=== PATIENT | male | born 1995 | race Caucasian/White ===

== ENCOUNTER 2021-03-20 13:56 | Emergency (ER) | payer BC ==
[2021-03-20 14:20] VITALS: BP 135/77; PULSE 88; RESP 20; TEMP 98
--- NOTE | 2021-03-20 14:47 | ED ---
General Adult HPI - General Chief complaint: Head Injury Stated complaint: head injury Source: patient, RN notes reviewed Mode of arrival: ambulatory Limitations: no limitations - History of Present Illness Initial comments: Patient is a 26-year-old male presents to the emergency department complaining of head injury. He notes that yesterday reported to his house to see what his kid was crying about he tripped fell and hit his head. He denied any loss of consciousness. He denied eating any blood thinners. Patient is alert and oriented 4. He denied any other issues or complaints. He did note that he did have some mental fogginess upon waking up today but otherwise feels fine. He wanted to come in just to make sure there was okay. He denied any chest pain shortness of breath headache nausea vomiting diarrhea constipation fever fatigue chills dizziness lightheadedness. - Related Data Allergies Allergy/AdvReac Type Severity Reaction Status Date / Time No Known Allergies Allergy Verified 03/20/21 14:17 Review of Systems ROS Statement: Those systems with pertinent positive or pertinent negative responses have been documented in the HPI. ROS Other: All systems not noted in ROS Statement are negative. Past Medical History Past Medical History: Hypertension History of Any Multi-Drug Resistant Organisms: None Reported Past Surgical History: No Surgical Hx Reported Past Psychological History: No Psychological Hx Reported Smoking Status: Never smoker Past Alcohol Use History: None Reported Past Drug Use History: None Reported General Exam Limitations: no limitations General appearance: alert, in no apparent distress Head exam: Present: atraumatic, normocephalic, normal inspection Eye exam: Present: normal appearance, PERRL, EOMI. Absent: scleral icterus, conjunctival injection, periorbital swelling Neck exam: Present: normal inspection Respiratory exam: Present: normal lung sounds bilaterally. Absent: respiratory distress, wheezes, rales, rhonchi, stridor Cardiovascular Exam: Present: regular rate, normal rhythm, normal heart sounds. Absent: systolic murmur, diastolic murmur, rubs, gallop, clicks Extremities exam: Present: normal inspection, full ROM, normal capillary refill. Absent: tenderness, pedal edema, joint swelling, calf tenderness Neurological exam: Present: alert, oriented X3 Psychiatric exam: Present: normal affect, normal mood Skin exam: Present: warm, dry, intact, normal color. Absent: rash Course Vital Signs 03/20/21 14:17 Temperature 98.0 F Pulse Rate 88 Respiratory 20 Rate Blood Pressure 135/77 O2 Sat by Pulse 100 Oximetry Medical Decision Making - Medical Decision Making 26-year-old male that fell on his head yesterday. Given patient's history and physical patient most likely has a concussion. No imaging or labs needed at this time. As patient is not taking blood thinners does not have any open wounds or lacerations. Case discussed with Dr. Copeland, patient discharge home with follow-up to primary care. Disposition Clinical Impression: Concussion Disposition: HOME SELF-CARE Condition: Stable Instructions (If sedation given, give patient instructions): Concussion (ED) Additional Instructions: Please return to the Emergency Department if symptoms worsen or any other concerns. Follow-up with primary care in the next several days. Take Tylenol as needed for pain. Avoid any strenuous activity or exercise. Is patient prescribed a controlled substance at d/c from ED?: No Referrals: Kirt Vines DO [Primary Care Provider] - 1-2 days Time of Disposition: 14:46
== END 2021-03-20 14:57 | disposition home or self-care (01) ==
LOC: EC 13:56
DX: S06.0X0A Concussion without loss of consciousness, initial encounter (principal); I10 Essential (primary) hypertension; W01.198A Fall on same level from slipping, tripping and stumbling with subsequent striking against other object, initial encounter; Y92.009 Unspecified place in unspecified non-institutional (private) residence as the place of occurrence of the external cause
CPT/HCPCS: 99283

== ENCOUNTER 2021-08-08 20:20 | Emergency (ER) | payer BC ==
[2021-08-08 20:38] VITALS: BP 138/85; TEMP 98.9
[2021-08-08] MEDS ORDERED: ONDANSETRON ODT 4 MG TAB PO STA (21:14)
[2021-08-08] MEDS ORDERED: ACETAMINOPHEN TAB 500 MG TAB PO STA (21:14)
--- NOTE | 2021-08-08 22:01 | CT ---
EXAMINATION TYPE: CT brain claudio melara DATE OF EXAM: 08/08/2021 COMPARISON: None available HISTORY: pain from fall CT DLP: 1566.9 mGycm Automated exposure control for dose reduction was used. TECHNIQUE: CT scan of the head and cervical spine are performed without contrast. FINDINGS: There is no acute intracranial hemorrhage, mass effect, or midline shift identified. The ventricles and sulci are within normal limits in size. The globes are intact and the visualized sin uses are clear. Cavum septum pellucidum seen. Cervical spine is visualized in its entirety from C1 through upper thoracic levels and demonstrates s atisfactory alignment without evidence of acute fracture or dislocation. Prevertebral soft tissue ap pears within normal limits. The C1-C2 articulation is unremarkable. IMPRESSION: 1. There is no acute fracture or dislocation evident in the cervical spine. 2. No acute intracranial hemorrhage, mass effect, or midline shift is seen.
[2021-08-08] MEDS ORDERED: ONDANSETRON 4 MG ODT STARTER PACK 2 TAB BTL PO STA (22:16)
--- NOTE | 2021-08-08 22:17 | ED ---
Fall HPI - General Chief Complaint: Fall Stated Complaint: Fall, Hit head Source: patient Mode of arrival: ambulatory - History of Present Illness Initial Comments: Patient is a 26-year-old male presents emergency department after he sustained a head injury. States that he tripped over a baby bottle, fell forward and hit his head on the carpet. He denies losing consciousness. Does admit to a headache. Did not take any medications for his pain. No visual changes. No speech difficulties. No numbness, tingling or weaknesses extremities. He denies any neck or back pain. No pain in his extremities. No chest pain or shortness of breath. Does admit to some nausea. His work was requesting that he be evaluated before he comes in to work. - Related Data Home Medications Medication Instructions Recorded Confirmed No Known Home Medications 08/08/21 08/08/21 Allergies Allergy/AdvReac Type Severity Reaction Status Date / Time iodine Allergy Rash/Hives Verified 08/08/21 21:54 Review of Systems ROS Statement: Those systems with pertinent positive or pertinent negative responses have been documented in the HPI. ROS Other: All systems not noted in ROS Statement are negative. Past Medical History Past Medical History: Hypertension History of Any Multi-Drug Resistant Organisms: None Reported Past Surgical History: No Surgical Hx Reported Past Psychological History: Anxiety Smoking Status: Never smoker Past Alcohol Use History: Occasional Past Drug Use History: None Reported General Exam Limitations: no limitations Course Vital Signs 08/08/21 08/08/21 20:36 22:23 Temperature 98.9 F Pulse Rate 91 78 Respiratory 20 16 Rate Blood Pressure 138/85 O2 Sat by Pulse 100 98 Oximetry Medical Decision Making - Medical Decision Making Upon arrival, the patient is placed in room 31. Thorough history and physical exam was performed. Patient sent for CT of his head which demonstrates no acute intracranial process. Given 4 mg of Zofran for nausea and Tylenol. Patient reevaluated and reports improvement in his symptoms. Patient will be discharged home at this time. Given a work note stating that he is appropriate to work. Instructed to follow-up with primary care doctor in 2-4 days. Return for any new or worsening symptoms. Patient discharged home in stable condition Disposition Clinical Impression: Fall, Head injury Disposition: HOME SELF-CARE Condition: Stable Instructions (If sedation given, give patient instructions): Head Injury (ED) Additional Instructions: Please follow up with your PCP in 2-4 days. Return to the emergency room for any new or worsening symptoms Is patient prescribed a controlled substance at d/c from ED?: No Referrals: Kirt Vines DO [Primary Care Provider] - 1-2 days Time of Disposition: 22:17
[2021-08-08 22:24] VITALS: PULSE 78; RESP 16
== END 2021-08-08 22:24 | disposition home or self-care (01) ==
LOC: EC 20:20
DX: S09.90XA Unspecified injury of head, initial encounter (principal); I10 Essential (primary) hypertension; Z88.8 Allergy status to other drugs, medicaments and biological substances; W18.09XA Striking against other object with subsequent fall, initial encounter; Y92.009 Unspecified place in unspecified non-institutional (private) residence as the place of occurrence of the external cause
CPT/HCPCS: 72125; 70450; 99284; S0119

== ENCOUNTER 2022-07-17 04:55 | Emergency (ER) | payer BC ==
[2022-07-17 05:08] VITALS: BP 143/100; RESP 16; TEMP 98.1
[2022-07-17] MEDS ORDERED: AZITHROMYCIN 500 MG TAB PO STA (05:17)
[2022-07-17] MEDS ORDERED: IPRATROPIUM-ALBUTEROL 3 ML NEB INHALATION STA (05:17)
--- NOTE | 2022-07-17 05:18 | ED ---
URI HPI - General Chief Complaint: Upper Respiratory Infection Stated Complaint: Congestion, Shortness of breath Time Seen by Provider: 07/17/22 05:17 Source: patient, RN notes reviewed, old records reviewed Mode of arrival: ambulatory Limitations: no limitations - History of Present Illness Initial Comments: This is a 27-year-old male DF for evaluation. Patient has a for cough congestion persisting cough or no vomiting. No fevers but occasionally does have chills and some sweating. Ration does have high blood pressure but no other medical history MD Complaint: fever, cough, sore throat, nasal congestion -: days(s) Severity: moderate Severity scale (1-10): 4 Quality: sharp Consistency: constant, intermittent Worsens With: nothing Context: sick contacts Associated Symptoms: fever, chills, myalgias, diaphoresis, cough, shortness of breath, abdominal pain, nausea, vomiting Treatments Prior to Arrival: none - Related Data Previous Rx's Medication Instructions Recorded Azithromycin [Zithromax] 500 mg PO DAILY #5 tab 07/17/22 Allergies Allergy/AdvReac Type Severity Reaction Status Date / Time iodine Allergy Rash/Hives Verified 08/08/21 21:54 Review of Systems ROS Statement: Those systems with pertinent positive or pertinent negative responses have been documented in the HPI. ROS Other: All systems not noted in ROS Statement are negative. Past Medical History Past Medical History: Hypertension History of Any Multi-Drug Resistant Organisms: None Reported Past Surgical History: No Surgical Hx Reported Past Psychological History: Anxiety Smoking Status: Never smoker Past Alcohol Use History: Occasional Past Drug Use History: None Reported General Exam Limitations: no limitations General appearance: alert, in no apparent distress Head exam: Present: atraumatic, normocephalic, normal inspection Eye exam: Present: normal appearance, PERRL, EOMI. Absent: scleral icterus, conjunctival injection, periorbital swelling ENT exam: Present: normal exam, mucous membranes moist Neck exam: Present: normal inspection. Absent: tenderness, meningismus, lymphadenopathy Respiratory exam: Present: normal lung sounds bilaterally. Absent: respiratory distress, wheezes, rales, rhonchi, stridor Cardiovascular Exam: Present: regular rate, normal rhythm, normal heart sounds. Absent: systolic murmur, diastolic murmur, rubs, gallop, clicks GI/Abdominal exam: Present: soft, normal bowel sounds. Absent: distended, tenderness, guarding, rebound, rigid Extremities exam: Present: normal inspection, full ROM, normal capillary refill. Absent: tenderness, pedal edema, joint swelling, calf tenderness Back exam: Present: normal inspection Neurological exam: Present: alert, oriented X3, CN II-XII intact Psychiatric exam: Present: normal affect, normal mood Skin exam: Present: warm, dry, intact, normal color. Absent: rash Course Vital Signs 07/17/22 07/17/22 07/17/22 05:06 05:27 05:35 Temperature 98.1 F Pulse Rate 79 79 85 Respiratory 16 Rate Blood Pressure 143/100 O2 Sat by Pulse 98 Oximetry - Reevaluation(s) Reevaluation #1: 07/17/22 medical record is reviewed patient symptoms improved here in the ED patient informed of results and questions answered Medical Decision Making - Medical Decision Making 27 male DF for evaluation. Patient is coming in for fever sore throat cough and congestion he has have pneumonia on x-ray we'll place on antibiotics and can be discharged home - Radiology Data Radiology results: report reviewed (Chest x-rays positive for pneumonia), image reviewed Disposition Clinical Impression: Community acquired bacterial pneumonia Disposition: HOME SELF-CARE Condition: Fair Instructions (If sedation given, give patient instructions): Community Acquired Pneumonia (ED) Prescriptions: Azithromycin [Zithromax] 500 mg PO DAILY #5 tab Is patient prescribed a controlled substance at d/c from ED?: No Referrals: None,Stated [Primary Care Provider] - 1-2 days Time of Disposition: 06:20
[2022-07-17 05:35] VITALS: PULSE 85
--- NOTE | 2022-07-17 06:12 | XR ---
EXAM: XR Chest, 1 View CLINICAL HISTORY: ITS.REASON XR Reason: cough TECHNIQUE: Frontal view of the chest. COMPARISON: No relevant prior studies available. FINDINGS: Lungs: Right infrahilar/basilar atelectasis and/or infiltrates. Pleural space: Unremarkable. No pneumothorax. Heart: Unremarkable. No cardiomegaly. Mediastinum: Unremarkable. Bones/joints: Unremarkable. IMPRESSION: Right infrahilar/basilar atelectasis and/or infiltrates. PA and lateral views of the chest recommended for further evaluation.
== END 2022-07-17 06:31 | disposition home or self-care (01) ==
LOC: EC 04:55
DX: J15.8 Pneumonia due to other specified bacteria (principal); I10 Essential (primary) hypertension; F41.9 Anxiety disorder, unspecified; Z91.041 Radiographic dye allergy status
CPT/HCPCS: 71045; 94640; 99284

== ENCOUNTER 2022-12-02 20:27 | Emergency (ER) | payer BC ==
[2022-12-02 20:37] VITALS: BP 131/86; PULSE 112; RESP 20; TEMP 99.2
--- NOTE | 2022-12-02 22:12 | ED ---
General Adult HPI - General Chief complaint: Headache Stated complaint: migraine,vomiting Time Seen by Provider: 12/02/22 22:12 Source: patient Mode of arrival: ambulatory - History of Present Illness Initial comments: 27-year-old male with no significant past medical history presents the emergency department with generalized body aches, headache, cough that started t nan. Patient denies any chest pain, palpitations, shortness of breath Vital signs stable upon initial evaluation. Patient eloped prior to completion of care and room assignment AGAINST MEDICAL ADVICE. - Related Data Previous Rx's Medication Instructions Recorded Azithromycin [Zithromax] 500 mg PO DAILY #5 tab 07/17/22 Allergies Allergy/AdvReac Type Severity Reaction Status Date / Time iodine Allergy Rash/Hives Verified 12/02/22 20:37 Review of Systems ROS Statement: Those systems with pertinent positive or pertinent negative responses have been documented in the HPI. ROS Other: All systems not noted in ROS Statement are negative. Past Medical History Past Medical History: Hypertension History of Any Multi-Drug Resistant Organisms: None Reported Past Surgical History: No Surgical Hx Reported Additional Past Surgical History / Comment(s): Left wrist Past Psychological History: Anxiety Smoking Status: Never smoker Past Alcohol Use History: Occasional Past Drug Use History: None Reported General Exam - General Exam Comments Initial Comments: Visual Physical Exam Vital signs reviewed General: Well-appearing, nontoxic, no acute distress. Head: Normocephalic, atraumatic Eyes: PERRLA, EOMI ENT: Airway patent Chest: Nonlabored breathing Skin: No visual rash, normal skin tone Neuro: Alert and oriented 3 Musculoskeletal: No gross abnormalities Course Vital Signs 12/02/22 20:34 Temperature 99.2 F Pulse Rate 112 H Respiratory 20 Rate Blood Pressure 131/86 O2 Sat by Pulse 95 Oximetry Medical Decision Making - Lab Data Lab Results 12/02/22 Range/Units 20:38 Influenza Type A (PCR) Not Detected (Not Detectd) Influenza Type B (PCR) Not Detected (Not Detectd) RSV (PCR) Not Detected (Not Detectd) SARS-CoV-2 (PCR) Not Detected (Not Detectd) Disposition Clinical Impression: Headache, Vomiting Disposition: Left Against Medical Advice Condition: Undetermined Referrals: None,Stated [Primary Care Provider] - 1-2 days Time of Disposition: :23
== END 2022-12-03 00:19 | disposition left against medical advice (07) ==
LOC: EC 20:27
DX: R51.9 Headache, unspecified (principal); R11.10 Vomiting, unspecified; I10 Essential (primary) hypertension; F41.9 Anxiety disorder, unspecified; Z91.048 Other nonmedicinal substance allergy status; Z53.29 Procedure and treatment not carried out because of patient's decision for other reasons; Z20.822 Contact with and (suspected) exposure to COVID-19
CPT/HCPCS: 87636; 99283

== ENCOUNTER 2022-12-15 22:54 | Emergency (ER) | payer BC ==
[2022-12-15 22:59] VITALS: BP 136/95; PULSE 74; RESP 16; TEMP 97.7
--- NOTE | 2022-12-15 23:19 | ED ---
General Adult HPI - General Chief complaint: Upper Respiratory Infection Stated complaint: Difficulty Breathing Time Seen by Provider: 12/15/22 23:03 Source: patient Mode of arrival: ambulatory Limitations: no limitations - History of Present Illness Initial comments: This is a 27-year-old male with no past medical history presents emergency department for possible swelling to the right side of his throat. The patient stated that he was laying down with his daughter and had some minor swelling sensation to the right side of his throat so he took a Claritin prior to coming to the emergency department. The patient stated that on arrival he had no complaints and had no swelling noted. The patient denied of any shortness of breath or difficulty in breathing. The patient stated he just wanted to make sure breathing was okay. The patient denied any throat swelling currently, pain or difficulty in swallowing. The patient was able to tolerate his own secretions. The patient reported that his fiance was just diagnosed with pneumonia and had been multiple sick contacts at the home. The patient also stated that he had an upper respiratory infection over the last 2 weeks and has been coughing. The patient denied any other acute pain or complaint at this time. - Related Data Previous Rx's Medication Instructions Recorded Azithromycin [Zithromax] 500 mg PO DAILY #5 tab 07/17/22 Allergies Allergy/AdvReac Type Severity Reaction Status Date / Time iodine Allergy Rash/Hives Verified 12/02/22 20:37 Review of Systems ROS Statement: Those systems with pertinent positive or pertinent negative responses have been documented in the HPI. ROS Other: All systems not noted in ROS Statement are negative. Past Medical History Past Medical History: Hypertension History of Any Multi-Drug Resistant Organisms: None Reported Past Surgical History: No Surgical Hx Reported Additional Past Surgical History / Comment(s): Left wrist Past Psychological History: Anxiety Smoking Status: Never smoker Past Alcohol Use History: Occasional Past Drug Use History: None Reported General Exam Limitations: no limitations General appearance: alert, in no apparent distress, obese Head exam: Present: atraumatic, normocephalic, normal inspection Eye exam: Present: normal appearance, PERRL Pupils: Present: normal accommodation ENT exam: Present: normal exam, normal oropharynx, mucous membranes moist Neck exam: Present: normal inspection, full ROM Respiratory exam: Present: normal lung sounds bilaterally Cardiovascular Exam: Present: regular rate, normal rhythm, normal heart sounds GI/Abdominal exam: Present: soft, normal bowel sounds Extremities exam: Present: normal inspection, full ROM Back exam: Present: normal inspection, full ROM Neurological exam: Present: alert, oriented X3, CN II-XII intact Psychiatric exam: Present: normal affect, normal mood Skin exam: Present: warm, dry Course Vital Signs 12/15/22 22:56 Temperature 97.7 F Pulse Rate 74 Respiratory 16 Rate Blood Pressure 136/95 O2 Sat by Pulse 99 Oximetry Medical Decision Making - Medical Decision Making Was pt. sent in by a medical professional or institution (MAZIN Sawyer, COVER [employer]ER, urgent care, hospital, or penitentiary...) When possible be specific @ -No Did you speak to anyone other than the patient for history (EMS, parent, family, police, friend...)? What history was obtained from this source @ -No Did you review nursing and triage notes (agree or disagree)? Why? @ -I reviewed and agree with nursing and triage notes Were old charts reviewed (outside hosp., previous admission, EMS record, old EKG, old radiological studies, urgent care reports/EKG's, penitentiary records)? Report findings @ -No old charts were reviewed Differential Diagnosis (chest pain, altered mental status, abdominal pain women, abdominal pain men, vaginal bleeding, weakness, fever, dyspnea, syncope, headache, dizziness, GI bleed, back pain, seizure, CVA, palpatations, mental health)? @ -Lymphedema, pharyngitis, URI EKG interpreted by me (3pts min.). @ -None X-rays interpreted by me (1pt min.). @ -None done CT interpreted by me (1pt min.). @ -None done U/S interpreted by me (1pt. min.). @ -None done What testing was considered but not performed or refused? (CT, X-rays, U/S, labs)? Why? @ -Chest x-ray was considered however the patient did not have any active cough or swelling noted. The patient no other symptoms therefore no further imaging was needed at this time. What meds were considered but not given or refused? Why? @ -None Did you discuss the management of the patient with other professionals (professionals i.e. MAZIN Sawyer, COVER MARKER, lab, RT, psych nurse, social service agency director, deckhand sponge boat, teacher, ski patrol officer, shoe caser)? Give summary @ -No Was smoking cessation discussed for >3mins.? @ -No Was critical care preformed (if so, how long)? @ -No Were there social determinants of health that impacted care today? How? (Homelessness, low income, unemployed, alcoholism, drug addiction, transportation, low edu. Level, literacy, decrease access to med. care, halfway, rehab)? @ -No Was there de-escalation of care discussed even if they declined (Discuss DNR or withdrawal of care, Hospice)? DNR status @ -No What co-morbidities impacted this encounter? (DM, HTN, Smoking, COPD, CAD, Cance r, CVA, ARF, Chemo, Hep., AIDS, mental health diagnosis, sleep apnea, morbid obesity)? @ -None Was patient admitted / discharged? Hospital course, mention meds given and route, prescriptions, significant lab abnormalities, going to OR and other pertinent info. @ -The patient was seen and evaluated emergency department. Physical exam, the patient was resting in bed without any acute distress. Physical exam was within normal limits and there was no swelling noted. The patient's posterior pharynx was clear and without any erythema or induration. There was no swelling noted. The patient denied any further testing at this time as he denied of any further symptoms. The patient was told to report back to the emergency department get worsening symptoms or complaints. The patient was agreeable to this and all his questions were answered. The patient was discharged home in stable condition. Undiagnosed new problem with uncertain prognosis? @ -No Drug Therapy requiring intensive monitoring for toxicity (Heparin, Nitro, Insulin, Cardizem)? @ -No Were any procedures done? @ -No Diagnosis/symptom? @ -Throat pain, NOS, resolved Acute, or Chronic, or Acute on Chronic? @ -Acute Uncomplicated (without systemic symptoms) or Complicated (systemic symptoms)? @ -Uncomplicated Side effects of treatment? @ -No Exacerbation, Progression, or Severe Exacerbation? @ -No Poses a threat to life or bodily function? How? (Chest pain, [place], [place], pneumonia, PE, COPD, DKA, ARF, appy, cholecystitis, CVA, Diverticulitis, Homicidal, Suicidal, threat to staff... and all critical care pts) @ -No Disposition Clinical Impression: Throat pain in adult Disposition: HOME SELF-CARE Condition: Stable Instructions (If sedation given, give patient instructions): Pharyngitis (ED) Is patient prescribed a controlled substance at d/c from ED?: No Referrals: None,Stated [Primary Care Provider] - 1-2 days Time of Disposition: 23:15
== END 2022-12-15 23:24 | disposition home or self-care (01) ==
LOC: EC 22:54
DX: R07.0 Pain in throat (principal); I10 Essential (primary) hypertension; Z86.59 Personal history of other mental and behavioral disorders; Z91.048 Other nonmedicinal substance allergy status
CPT/HCPCS: 99284

== ENCOUNTER 2023-03-13 15:14 | Emergency (ER) | payer BC ==
[2023-03-13 15:20] VITALS: TEMP 98.4
[2023-03-13] MEDS ORDERED: HYDROCORTISONE 1% CREAM 30 GM TUBE TOPICAL STA (15:43)
[2023-03-13] MEDS ORDERED: hydrOXYzine HCL 25 MG TAB PO STA (15:43)
[2023-03-13] MEDS ORDERED: SODIUM CHLORIDE 0.9% 500 ML 500 ML IV STA (15:43)
[2023-03-13] MEDS ORDERED: DEXAMETHASONE SOD PHOSPHATE 10 MG/ML 1 ML VIAL IVP STA (15:43)
[2023-03-13] MEDS ORDERED: FAMOTIDINE 20 MG/2 ML VIAL IV STA (15:43)
--- NOTE | 2023-03-13 15:44 | ED ---
Allergic Reaction HPI - General Chief complaint: Allergic Reaction Stated complaint: allergic reaction, bee sting Time Seen by Provider: 03/13/23 15:16 Source: patient, EMS, RN notes reviewed, old records reviewed Mode of arrival: EMS - History of Present Illness Initial Comments: This is a 28-year-old male to the emergency department for evaluation patient presents today for evaluation regards to bee sting, bee sting with severe ALLERGY, patient did give himself epinephrine and called EMS. Patient presents with EMS for bee sting with improving symptoms. Initially patient states he had some hives and facial swelling throat swelling that is resolved. Patient's left hand where he got bit is significantly swollen and itchy MD Complaint: allergic reaction, hives, other (Bee sting) -: hour(s) Exposure: unknown Symptoms: rash Severity: moderate Treatment Prior to Arrival: none Previous Allergy History: none - Related Data Previous Rx's Medication Instructions Recorded Azithromycin [Zithromax] 500 mg PO DAILY #5 tab 07/17/22 Famotidine [Pepcid] 40 mg PO BID #28 tablet 03/13/23 hydrOXYzine HCL [Atarax] 25 mg PO TID PRN #15 tab 03/13/23 predniSONE 50 mg PO DAILY #5 tab 03/13/23 Allergies Allergy/AdvReac Type Severity Reaction Status Date / Time bee venom protein (honey bee) Allergy Anaphylaxis Verified 03/13/23 15:20 iodine Allergy Rash/Hives Verified 03/13/23 15:20 Review of Systems ROS Statement: Those systems with pertinent positive or pertinent negative responses have been documented in the HPI. ROS Other: All systems not noted in ROS Statement are negative. Past Medical History Past Medical History: Asthma, Hypertension History of Any Multi-Drug Resistant Organisms: None Reported Past Surgical History: No Surgical Hx Reported Additional Past Surgical History / Comment(s): Left wrist Past Psychological History: Anxiety Smoking Status: Never smoker Past Alcohol Use History: Occasional Past Drug Use History: None Reported General Exam General appearance: alert, in no apparent distress Head exam: Present: atraumatic, normocephalic, normal inspection Eye exam: Present: normal appearance, PERRL, EOMI. Absent: scleral icterus, conjunctival injection, periorbital swelling ENT exam: Present: normal exam, mucous membranes moist Neck exam: Present: normal inspection. Absent: tenderness, meningismus, lymphadenopathy Respiratory exam: Present: normal lung sounds bilaterally. Absent: respiratory distress, wheezes, rales, rhonchi, stridor Cardiovascular Exam: Present: regular rate, normal rhythm, normal heart sounds. Absent: systolic murmur, diastolic murmur, rubs, gallop, clicks GI/Abdominal exam: Present: soft, normal bowel sounds. Absent: distended, tenderness, guarding, rebound, rigid Extremities exam: Present: normal inspection, full ROM, normal capillary refill. Absent: tenderness, pedal edema, joint swelling, calf tenderness Back exam: Present: normal inspection Neurological exam: Present: alert, oriented X3, CN II-XII intact Psychiatric exam: Present: normal affect, normal mood Skin exam: Present: warm, dry, intact, normal color. Absent: rash Course Vital Signs 03/13/23 03/13/23 03/13/23 15:16 15:30 17:17 Temperature 98.4 F Pulse Rate 94 70 Respiratory 18 18 16 Rate Blood Pressure 138/78 112/67 O2 Sat by Pulse 96 98 Oximetry - Reevaluation(s) Reevaluation #1: 03/13/23 17:02 Medical record is reviewed Reevaluation #2: 03/13/23 17:02 Patient symptoms remained improved Reevaluation #3: 03/13/23 17:02 Patient informed results questions answered Reevaluation #4: 03/13/23 17:02 Was pt. sent in by a medical professional or institution? @ -no Did you speak to anyone other than the patient for history? @ -no Did you review nursing and triage notes? @ -agree Were old charts reviewed? @ -yes Differential Diagnosis? @ -prior EKG interpreted by me (3pts min.)? @ -no X-rays interpreted by me (1pt min.)? @ -no CT interpreted by me (1pt min.)? @ -no U/S interpreted by me (1pt. min.)? @ -no What testing was considered but not performed? (CT, X-rays, U/S, labs)? Why? @ -no What meds were considered but not given? Why? @ -no Did you discuss the management of the patient with other professionals? @ -Did speak with Dr. Almeida who helps informed of patient's history of prior hospitalization which included recurrent hypoglycemia Did you reconcile home meds? @ -no Was smoking cessation discussed for >3mins.? @ -no Was critical care preformed (if so, how long)? @ -no Were there social determinants of health that impacted care today? How? (Homelessness, low income, unemployed, alcoholism, drug addiction, transportation, low edu. Level, literacy, decrease access to med. care, long term, rehab)? @ -no Was there de-escalation of care discussed even if they declined? (Discuss DNR or withdrawal of care, Hospice)? @ -no What co-morbidities impacted this encounter? (DM, HTN, Smoking, COPD, CAD, Cancer, CVA, Hep., AIDS, mental health diagnosis, sleep apnea, morbid obesity)? @ -no Was patient admitted / discharged? @ -28 male to the emergency department for evaluation of bee sting significant take EpiPen. 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 @ -no Drug Therapy requiring intensive monitoring for toxicity (Heparin, Nitro, Insulin, Cardizem)? @ -no Were any procedures done? @ -no Diagnosis/symptom? @ -Bee sting, anaphylactoid reaction Acute, or Chronic, or Acute on Chronic? @ -acute Uncomplicated (without systemic symptoms) or Complicated (systemic symptoms)? @ -complicated Side effects of treatment? @ -no Exacerbation, Progression, or Severe Exacerbation] @ -no Poses a threat to life or bodily function? @ -yes anaphylaxis Medical Decision Making - Medical Decision Making 28 male to the emergency department for evaluation of bee sting significant take EpiPen. 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 Patient be discharged on steroids and antihistamines and patient feels good for discharge home currently no shortness of breath Disposition Clinical Impression: Allergic reaction, Allergic reaction to insect sting, Anaphylaxis Disposition: HOME SELF-CARE Instructions (If sedation given, give patient instructions): Anaphylaxis (ED) Prescriptions: hydrOXYzine HCL [Atarax] 25 mg PO TID PRN #15 tab PRN Reason: Itching Famotidine [Pepcid] 40 mg PO BID #28 tablet predniSONE 50 mg PO DAILY #5 tab Is patient prescribed a controlled substance at d/c from ED?: No Referrals: None,Stated [Primary Care Provider] - 1-2 days Time of Disposition: 17:00
[2023-03-13 17:19] VITALS: BP 112/67; PULSE 70; RESP 16
== END 2023-03-13 17:25 | disposition home or self-care (01) ==
LOC: EC 15:14
DX: T63.441A Toxic effect of venom of bees, accidental (unintentional), initial encounter (principal); I10 Essential (primary) hypertension; J45.909 Unspecified asthma, uncomplicated; Z91.030 Bee allergy status; Z88.8 Allergy status to other drugs, medicaments and biological substances
CPT/HCPCS: 99284; 96374; 96375; J1100